=== PATIENT | male | born 1970 | race American Indian/Alaskan Native ===

== ENCOUNTER 2017-11-11 00:01 | Emergency (ER) | payer SELFPAY ==
[2017-11-11 00:35] VITALS: BP 146/93
[2017-11-11] MEDS ORDERED: BOOSTRIX IM ONE (01:58)
[2017-11-11] MEDS ORDERED: NORCO 7.5/325 ONE (02:22)
[2017-11-11] MEDS ORDERED: BACTRIM DS ONE (02:23)
[2017-11-11] MEDS ORDERED: NORCO 7.5/325 PO ONE (02:23)
[2017-11-11] MEDS ORDERED: KEFLEX ONE (02:23)
[2017-11-11] MEDS ORDERED: KEFLEX PO ONE (02:24)
[2017-11-11] MEDS ORDERED: BACTRIM DS PO ONE (02:24)
--- NOTE | 2017-11-11 02:28 | Emergency Department Report ---
- General Chief Complaint: Wound/Laceration Stated Complaint: rigth finger lac Time Seen by Provider: 11/11/17 02:23 Source: patient Mode of arrival: Ambulatory Limitations: No Limitations - History of Present Illness Initial Comments: 47-year-old male comes in for laceration to his right ring middle finger and left thumb. Patient reports that he was using equipment at work and put his hand and it accidentally and it lacerated his finger. Patient admits to pain bleeding. Patient has a past medical history of diabetes and hypertension. -: This evening Time: 10:30 Extremity Location: Left: Hand (right middle finger left thumb laceration), Right: Hand Place: work Patient Tetanus UTD: No Context: accidental Associated Symptoms: pain - Related Data Previous Rx's Medication Instructions Recorded Last Taken Type Acetaminophen with Codeine 1 tab PO Q6HR #12 tab 11/11/17 Unknown Rx [Acetaminophen-Codeine #4 TAB] Cephalexin [Keflex] 500 mg PO Q12HR #20 capsule 11/11/17 Unknown Rx Ibuprofen [Motrin 800 MG tab] 800 mg PO Q8HR PRN #30 tablet 11/11/17 Unknown Rx Sulfamethoxazole/Trimethoprim 1 each PO BID #20 tablet 11/11/17 Unknown Rx [Bactrim DS TAB] Allergies Allergy/AdvReac Type Severity Reaction Status Date / Time No Known Allergies Allergy Unverified 11/11/17 00:34 ED Review of Systems ROS: Stated complaint: rigth finger lac Other details as noted in HPI Constitutional: denies: chills, fever Eyes: denies: eye pain, eye discharge, vision change Skin: other (cut to right middle finger and left thumb) ED Past Medical Hx - Past Medical History Previous Medical History?: Yes Hx Diabetes: Yes - Surgical History Past Surgical History?: No - Social History Smoking Status: Never Smoker Substance Use Type: Alcohol - Medications Home Medications: Home Medications Medication Instructions Recorded Confirmed Last Taken Type Acetaminophen with Codeine 1 tab PO Q6HR #12 tab 11/11/17 Unknown Rx [Acetaminophen-Codeine #4 TAB] Cephalexin [Keflex] 500 mg PO Q12HR #20 capsule 11/11/17 Unknown Rx Ibuprofen [Motrin 800 MG tab] 800 mg PO Q8HR PRN #30 tablet 11/11/17 Unknown Rx Sulfamethoxazole/Trimethoprim 1 each PO BID #20 tablet 11/11/17 Unknown Rx [Bactrim DS TAB] ED Physical Exam - General Limitations: No Limitations General appearance: alert, in no apparent distress - Head Head exam: Present: atraumatic, normocephalic - Eye Eye exam: Present: PERRL, EOMI - ENT ENT exam: Present: mucous membranes moist - Expanded Upper Extremity Exam Right Forearm Wrist exam: Present: full ROM. Absent: tenderness Hand Wrist exam: Present: full ROM, tenderness (right middle finger), swelling ( middle finger), laceration (5 cm lateral to medial on the palmar side), other ( active bleeding). Absent: deformity, crepidus Neuro motor exam: Present: wrist extension intact, thumb opposition intact, thumb IP flexion intact, thumb adduction intact, fingers 2-5 abduction intact Neurosensory exam: Present: 2-point discrimination, radial nerve intact, ulnar nerve intact, median nerve intact Vascular: Present: normal capillary refill. Absent: vascular compromise Left Hand Wrist exam: Present: tenderness, laceration (1.5 cm laceration to left palmar thumb nailbed spared), erythema. Absent: swelling, deformity, amputation Neuro motor exam: Present: wrist extension intact, thumb opposition intact, thumb IP flexion intact, thumb adduction intact, fingers 2-5 abduction intact Neurosensory exam: Present: 2-point discrimination, radial nerve intact, ulnar nerve intact, median nerve intact Vascular: Present: normal capillary refill. Absent: vascular compromise - Neurological Exam Neurological exam: Present: alert, oriented X3 - Psychiatric Psychiatric exam: Present: normal affect, normal mood ED Course Vital Signs 11/11/17 00:01 Temperature 98.4 F Pulse Rate 109 H Respiratory 18 Rate Blood Pressure 146/93 O2 Sat by Pulse 96 Oximetry - Laceration /Wound Repair Right Finger Wound Location: upper extremity (right middle finger 5 cm laceration) Wound's Depth, Shape: into muscle, irregular Wound Explored: contaminated Irrigated w/ Saline (ccs): 500 Betadine Prep?: Yes Anesthesia: 1% Lidocaine Volume Anesthetic (ccs): 5 Wound Debrided: moderate Wound Repaired With: sutures Suture Size/Type: 3:0, proline Number of Sutures: 5 Layer Closure?: No Sterile Dressing Applied?: Yes Progress: Patient tolerated procedure well Left Finger Wound Location: upper extremity (left thumb) Wound Length (cm): 2 Wound's Depth, Shape: superficial, linear Wound Explored: clean Irrigated w/ Saline (ccs): 500 Betadine Prep?: Yes Anesthesia: 1% Lidocaine Volume Anesthetic (ccs): 3 Wound Debrided: moderate Wound Repaired With: sutures Suture Size/Type: 4:0, proline Number of Sutures: 3 Layer Closure?: No Sterile Dressing Applied?: Yes Progress: Patient tolerated procedure well ED Medical Decision Making - Medical Decision Making Patient has been evaluated by this provider fast track. Patient has 2 lacerations 1 lacerations approximate 5 cm on the right middle finger proximal Second laceration left thumb nailbed spared approximately 2 cm Laceration was completed patient tolerated procedure well. Discussed the patient he needs to return back in 10-14 days to have sutures removed. Will place patient on Keflex and Bactrim this patient is a diabetic and his hands often in a machinery. Recommend patient to wear gloves while at work. Discharge patient on Tylenol No. 4 for pain management. Discussed the patient at keep wound clean and dry. Patient verbalized understanding Critical care attestation.: If time is entered above; I have spent that time in minutes in the direct care of this critically ill patient, excluding procedure time. ED Disposition Clinical Impression: Laceration of finger Qualifiers: Encounter type: initial encounter Finger: middle finger Damage to nail status: without damage Foreign body presence: without foreign body Laterality: right Qualified Code(s): S61.212A - Laceration without foreign body of right middle finger without damage to nail, initial encounter Laceration of thumb without damage to nail Qualifiers: Encounter type: initial encounter Foreign body presence: without foreign body Laterality: left Qualified Code(s): S61.012A - Laceration without foreign body of left thumb without damage to nail, initial encounter Disposition: DC-01 TO HOME OR SELFCARE Is pt being admited?: No Does the pt Need Aspirin: No Condition: Stable Instructions: Suture Care (ED), Laceration (ED) Additional Instructions: Please take antibiotics as prescribed. Please take pain medication as needed. Please do not operate heavy machinery while taking Tylenol No. 4. Please return back to the emergency room in 10-14 days to have sutures removed. Please return sooner if there is any signs of infection such as fever swelling redness or purulent discharge. Prescriptions: Acetaminophen with Codeine [Acetaminophen-Codeine #4 TAB] 1 tab PO Q6HR #12 tab Cephalexin [Keflex] 500 mg PO Q12HR #20 capsule Ibuprofen [Motrin 800 MG tab] 800 mg PO Q8HR PRN #30 tablet PRN Reason: Pain Sulfamethoxazole/Trimethoprim [Bactrim DS TAB] 1 each PO BID #20 tablet Referrals: PRIMARY CARE, [Primary Care Provider] - 3-5 Days [facility] [Provider Group] - 3-5 Days Forms: Work/School Release Form(ED)
== END 2017-11-11 02:53 | disposition home or self-care (01) ==
LOC: ED 00:01
DX: S61.212A Laceration without foreign body of right middle finger without damage to nail, initial encounter (principal); S61.012A Laceration without foreign body of left thumb without damage to nail, initial encounter; E11.9 Type 2 diabetes mellitus without complications; W27.8XXA Contact with other nonpowered hand tool, initial encounter; Y93.89 Activity, other specified; Y99.8 Other external cause status; Y92.69 Other specified industrial and construction area as the place of occurrence of the external cause
CPT/HCPCS: 90471; 90715